=== PATIENT | male | born 1975 | race Caucasian/White ===

== ENCOUNTER 2019-11-06 09:43 | Emergency (ER) | payer OTHER, SELFPAY ==
[2019-11-06 09:58] VITALS: BP 142/81; PULSE 88; RESP 18; TEMP 37.4; O2SAT 99
--- NOTE | 2019-11-06 10:20 | ED.LOWEXIN ---
HPI - Extremity Injury (Lower) General Chief Complaint: Extremity Problem,Nontraumatic Stated Complaint: Heel Pain Time Seen by Provider: 11/06/19 10:08 Source: patient and RN notes reviewed Mode of arrival: ambulatory Limitations: no limitations History of Present Illness HPI Narrative: Patient presents today complaining of a 2-day history of right heel pain. Patient denies any injury or trauma. Reports history of heel spurs in this heel 10 years ago, but that had not really been bothering him since. He currently rates his pain 5/10, which increases with weightbearing. He has tried no [id number] medicines for pain prior to arrival. MD complaint: foot injury Related Data Home Medications Medication Instructions Recorded Confirmed lisinopril 5 mg PO DAILY 11/06/19 11/06/19 omeprazole 20 mg PO DAILY 11/06/19 11/06/19 Allergies Allergy/AdvReac Type Severity Reaction Status Date / Time No Known Allergies Allergy Verified 08/16/16 23:02 Review of Systems Review of Systems: Narrative: CONSTITUTIONAL: Denies body aches, fever, chills, or sweats. EYES: Denies visual changes, redness, or discharge. ENT: Denies rhinorrhea, congestion, sore throat, or otalgia. CARDIOVASCULAR: Denies chest pain, palpitations, or edema. RESPIRATORY: Denies cough or dyspnea. GASTROINTESTINAL: Denies abdominal pain, nausea, vomiting, or diarrhea. GENITOURINARY: Denies dysuria or hematuria. SKIN: Denies rash, itching, or wounds. MUSCULOSKELETAL: Denies back pain, joint pain, or myalgia.+ Right heel pain NEUROLOGIC: Denies headache, numbness, tingling, or weakness. PSYCH: Denies depression or anxiety. [facility] Past Medical History Medical History (Updated 11/06/19 @ 10:23 by La Nena Bui, [facility], ) GERD (gastroesophageal reflux disease) Hypertension Family History Family History (Updated 04/30/16 @ 23:21 by DOCTOR UNKNOWN) Father Hypertension Family history of elevated blood lipids Family history of diabetes mellitus in first degree relative Family history of heart disease in male family member before age 55 Mother Hypertension Patient's mother is in good health Sibling Hypertension Family history of gastrointestinal disorder Other Diabetes mellitus Family history of arthritis Family history of gout Social History Social History Smoking status: Never smoker Alcohol intake: current Comments At time of signature, I have reviewed and agree with nursing past medical, surgical, social and family history unless otherwise noted. Please see nursing chart for further information. There is no relevant family history pertinent to the presenting complaint Exam Narrative: Exam Narrative: GENERAL: Well-appearing, severely over-nourished, and in no acute distress. HEAD: Normocephalic, atraumatic. EYES: EOMI. No redness or drainage. Conjunctivae normal. ENT: Mucous membranes pink and moist. NECK: Normal AROM. CHEST: No respiratory distress. EXTREMITIES: Tenderness to the right plantar fascia. No swelling, ecchymosis, erythema of the foot. Distal sensation intact. Capillary refill normal. Pedal pulse normal. Full AROM of ankle and all toes. No morning bony tenderness to the calcaneus SKIN: Warm, dry, no rash. NEURO: No focal deficits. Alert and oriented x3. Gait steady. PSYCH: Normal affect. No signs of depression or anxiety. Course Vital Signs Vital signs: Vital Signs Temperature 99.3 F 11/06/19 09:58 Pulse Rate 88 11/06/19 09:58 Respiratory Rate 18 11/06/19 09:58 Blood Pressure 142/81 H 11/06/19 09:58 Pulse Oximetry 99 11/06/19 09:58 Temperature 99.3 F 11/06/19 09:58 Pulse Rate 88 11/06/19 09:58 Respiratory Rate 18 11/06/19 09:58 Blood Pressure 142/81 H 11/06/19 09:58 Pulse Oximetry 99 11/06/19 09:58 Reviewed. Pt has been instructed to follow up with his PCP regarding his elevated blood pressure today. MDM - Extremity Injury (Lower) Differential
== END 2019-11-06 10:25 | disposition home or self-care (01) ==
PROVIDERS: Emergency Provider Nurse Practitioner
DX: M72.2 Plantar fascial fibromatosis (principal); K21.9 Gastro-esophageal reflux disease without esophagitis; I10 Essential (primary) hypertension
CPT/HCPCS: 99213; G0463

== ENCOUNTER 2021-09-10 15:27 | Emergency (ER) | payer OTHER, SELFPAY ==
[2021-09-10 15:40] VITALS: BP 155/83; PULSE 103; RESP 16; TEMP 36.9; O2SAT 96
--- NOTE | 2021-09-10 16:00 | ED.BACK ---
HPI - Back Pain/Injury General Chief Complaint: Back Pain/Injury Stated Complaint: back pain Source: patient and RN notes reviewed Mode of arrival: ambulatory History of Present Illness HPI Narrative: This is a 45-year-old male who presented to urgent care with complaints of lower back pain. According to patient approximately 1 week ago he bent over and felt an unusual pain to his lower back. Patient notes that he has been taking ibuprofen at home with some relief, patient notes that his pain increases when he stands and bear weight. The patient denies SOB, CP, palpitation, extremity numbness, lightheadedness, dizziness, constipation, diarrhea, no neurovascular deficiency noted, chills, or fever. Related Data Home Medications Medication Instructions Recorded Confirmed lisinopril 5 mg PO DAILY 11/06/19 09/10/21 omeprazole 20 mg PO DAILY 11/06/19 09/10/21 Allergies Allergy/AdvReac Type Severity Reaction Status Date / Time No Known Allergies Allergy Verified 09/10/21 15:55 Review of Systems Review of Systems: A 14 organ system Review of Systems was performed and pertinent positives included in the HPI, otherwise remaining ROS is negative. [facility] Past Medical History Medical History (Updated 09/10/21 @ 15:59 by CATHLEEN Bowden) GERD (gastroesophageal reflux disease) Hypertension ANNELISE (obstructive sleep apnea) Osteoarthritis of knees, bilateral Surgical History Surgical History (Updated 09/10/20 @ 09:49 by Meenu Mcpherson) History of cholecystectomy Family History Family History Father Hypertension Family history of elevated blood lipids Family history of diabetes mellitus in first degree relative Family history of heart disease in male family member before age 55 Mother Hypertension Patient's mother is in good health Sibling Hypertension Family history of gastrointestinal disorder Other Diabetes mellitus Family history of arthritis Family history of gout Social History Social History Smoking status: Never smoker Alcohol intake: current Exam Narrative: GENERAL: This is a well-nourished, well-developed patient, in no apparent distress. HEAD: normocephalic, atraumatic. EYES: PERRL. Sclera clear/white. Vision is grossly intact. EARS: External ears normal, auditory canals clear and without drainage, TMs normal without perforation. Hearing grossly intact. NOSE: External nose normal with no obvious nasal discharge, nares without redness, no rhinorrhea. THROAT: Mucous membranes moist, posterior pharynx clear. NECK: Neck supple, non-tender without lymphadenopathy, masses or thyromegaly. CARDIOVASCULAR: Regular rate and rhythm without murmurs, gallops, or rubs. RESPIRATORY: Clear to auscultation. Breath sounds equal bilaterally. No wheezes, rales, or rhonchi. GASTROINTESTINAL: Abdomen soft, non-tender, nondistended. Bowel sounds are active. No hepato-splenomegaly, or palpable masses. No guarding. SKIN: warm, intact with no suspicious lesions or rash, good texture and turgor. NEURO: awake, alert, and oriented to person, place and time. There were no obvious focal neurologic abnormalities. Steady gait EXTREMITIES: Normal range of motion. No edema. No calf tenderness. Negative Homans sign bilaterally. BACK: Tenderness to lower back with palpation Course Course Emergency Course: Patient was discharged with Flexeril Vital Signs Vital signs: Vital Signs Temperature 98.5 F 09/10/21 15:40 Pulse Rate 103 H 09/10/21 15:40 Respiratory Rate 16 09/10/21 15:40 Blood Pressure 155/83 H 09/10/21 15:40 Pulse Oximetry 96 09/10/21 15:40 Temperature 98.5 F 09/10/21 15:40 Pulse Rate 103 H 09/10/21 15:40 Respiratory Rate 16 09/10/21 15:40 Blood Pressure 155/83 H 09/10/21 15:40 Pulse Oximetry 96 09/10/21 15:40 MDM - Back Pain/Injury Differential Matilde
== END 2021-09-10 16:05 | disposition home or self-care (01) ==
PROVIDERS: Emergency Provider Nurse Practitioner; PCP Nurse Practitioner Family
DX: M54.50 Low back pain, unspecified (principal); K21.9 Gastro-esophageal reflux disease without esophagitis; I10 Essential (primary) hypertension; G47.33 Obstructive sleep apnea (adult) (pediatric); M17.0 Bilateral primary osteoarthritis of knee
CPT/HCPCS: 99213; G0463

== ENCOUNTER 2025-06-02 18:05 | Emergency (ER) | payer OTHER, SELFPAY ==
--- NOTE | ~2025-06-02 | XR_ITS ---
EXAMINATION: XR chest 2V DATE: 06/02/2025 18:57 INDICATION: Midsternal chest pain TECHNIQUE: PA and lateral views of the chest were obtained. COMPARISON: Chest radiograph dated 06/03/2016 FINDINGS: The lungs remain clear with no focal airspace opacities, pulmonary edema, pleural effusion or pneumothorax. The cardiomediastinal silhouette is normal. Mild thoracic spondylosis. IMPRESSION: 1. No acute cardiopulmonary disease. Reviewed, dictated and finalized at location A.
--- NOTE | 2025-06-02 18:06 | ECG_ITS ---
Test Date: 2025-06-02 18:10:52 Measurements Intervals [place] Rate: 88 P: 9 CT: 167 QRS: -31 QRSD: 81 T: 12 QT: 326 QTc: 396 Interpretive Statements SINUS RHYTHM LOW QRS VOLTAGE IN PRECORDIAL LEADS CONSIDER INFERIOR INFARCT, AGE INDETERMINATE CONSIDER ANTERIOR INFARCT, AGE INDETERMINATE BASELINE ARTIFACT- I, II, III, AVR, AVL, AVF, V1-V5 ABNORMAL ECG No previous ECG available for comparison Electronically Signed On 06-02-2025 21:18:01 CDT by Paul Sheriff D.O.
[2025-06-02 18:19] VITALS: BP 184/96; PULSE 88; RESP 20; TEMP 36.6; O2SAT 96
[2025-06-02 18:45] LABS: INR 1.1; Prothrombin Time 14.3 Seconds (11.1-14.7)
[2025-06-02 18:46] LABS: Partial Thromboplastin Time 27.9 Seconds (22.3-36.8)
[2025-06-02 18:48] LABS: Alanine Aminotransferase 35 U/L (6-50); Albumin Level 4.2 g/dL (3.5-5.1); Alkaline Phosphatase 85 U/L (38-126); Anion Gap 9 mmol/L (4-12); Aspartate Amino Transferase 31 U/L (17-59); Bilirubin,Total 0.9 mg/dL (0.2-1.3); Blood Urea Nitrogen 8 mg/dL (9-20); Calcium 9.2 mg/dL (8.4-10.2); Carbon Dioxide 27 mmol/L (22-30); Chloride 103 mmol/L (98-107); Estimated CRCL calculation 165 ml/min; Estimated Glomerular Filt Rate > 60; Glucose 101 mg/dL (65-110); Lipase 66 U/L (23-300); Potassium 3.9 mmol/L (3.4-5.0); Sodium 139 mmol/L (137-145); Total Protein 8.0 g/dL (6.3-8.2)
[2025-06-02 18:57] LABS: Troponin I < 0.012 ng/mL (0.000-0.034)
[2025-06-02 19:57] LABS: Hematocrit 44.0 % (42.0-52.0); Hemoglobin 13.8 g/dL (14.0-18.0); Immature Granulocyte Percent A 0.3 % (0-0.5); Lymphocytes Absolute Auto 2.54 K/mm3 (0.9-3.2); Mean Corpuscular HGB Conc 31.4 g/dl (32-36); Mean Corpuscular Hemoglobin 28.3 pg (26-34); Mean Corpuscular Volume 90.3 fl (80-100); Nucleated Red Blood Cells Absolute Auto 0.000 K/mm3 (0.0-0.012); Nucleated Red Blood Cells Perc 0.0 % (0.0-0.2); Platelet Count Result 388 k/mm3 (150-375); Red Blood Count 4.87 M/mm3 (4.6-6.20); White Blood Count 10.0 K/mm3 (4.5-10.0)
[2025-06-02 21:29] VITALS: BP 148/100; PULSE 78; RESP 18; TEMP 36.6; O2SAT 95
--- NOTE | 2025-06-02 21:38 | ECG_ITS ---
Test Date: 2025-06-02 22:28:32 Measurements Intervals [place] Rate: 78 P: 12 MD: 176 QRS: -18 QRSD: 74 T: 6 QT: 355 QTc: 404 Interpretive Statements SINUS RHYTHM LOW QRS VOLTAGE IN PRECORDIAL LEADS [QRS DEFLECTION < 1.0 mV IN CHEST LEADS] ANTERIOR MYOCARDIAL INFARCTION , PROBABLY OLD [40+ ms Q WAVE AND/OR ST/T ABNORMALITY IN V3/V4] INFERIOR MYOCARDIAL INFARCTION , PROBABLY OLD [40+ ms Q WAVE AND/OR ST/T ABNORMALITY IN II/aVF] Compared to ECG 06/02/2025 18:10:52 No significant changes Electronically Signed On 06-03-2025 11:42:53 CDT by Rajan Magaña M.D.
[2025-06-02 22:05] VITALS: BP 141/88; PULSE 85; RESP 17; O2SAT 97
[2025-06-02 22:08] VITALS: PULSE 86
[2025-06-02 22:43] VITALS: O2SAT 98
[2025-06-02 22:56] LABS: Troponin I < 0.012 ng/mL (0.000-0.034)
--- NOTE | 2025-06-02 23:52 | ED.GENADULT ---
HPI - General Adult General Chief complaint: Chest Pain Stated complaint: CP Time Seen by Provider: 06/02/25 23:19 History of Present Illness HPI narrative: Patient is a 50-year-old gentleman presents emergency department with chief complaint of chest pain. Patient reports that he has been having discomfort for the last few days reports a 5/10 reports that sharp reports that he felt a little short of breath with that patient reports that he has no prior history of cardiac disease does have history of hypertension and reports that he had a cardiac catheterization about 5 years ago Related Data Home Medications ?Medication ?Instructions ?Recorded ?Confirmed ?Last Taken ?Type lisinopril 5 mg tablet 5 mg PO DAILY 11/06/19 09/10/21 Unknown History omeprazole 20 mg tablet,delayed 20 mg PO DAILY 11/06/19 09/10/21 Unknown History release Allergies Allergy/AdvReac Type Severity Reaction Status Date / Time No Known Allergies Allergy Verified 06/02/25 18:19 Review of Systems Review of Systems: A 10 system review of systems was completed on the patient and is negative except for what is stated in the HPI. Nursing and ancillary documentation was reviewed. [facility] Past Medical History Medical History ANNELISE (obstructive sleep apnea) Osteoarthritis of knees, bilateral Hypertension GERD (gastroesophageal reflux disease) Surgical History Surgical History History of cholecystectomy Family History Family History Father Hypertension Family history of elevated blood lipids Family history of diabetes mellitus in first degree relative Family history of heart disease in male family member before age 55 Mother Hypertension Patient's mother is in good health Sibling Hypertension Family history of gastrointestinal disorder Other Diabetes mellitus Family history of arthritis Family history of gout Social History Social History Smoking status: Never smoker Alcohol intake: current Exam Narrative: GENERAL: Well-appearing, obese, and in no acute distress. HEAD: Normocephalic, atraumatic. EYES: PERRLA and EOMI. ENT: Nares clear, no rhinorrhea or epistaxis. Mucous membranes moist. NECK: Supple. CHEST: Clear to auscultation. No respiratory distress. HEART: Regular rate and rhythm. No murmur heard. Normal peripheral pulses. ABDOMEN: Soft, nontender, nondistended, normal active bowel sounds. EXTREMITIES: Normal range of motion. No edema. SKIN: Warm, dry, no rash. NEURO: No focal deficits. Alert and oriented x3. PSYCH: Normal mood and affect. Course Vital Signs Vital signs: Vital Signs Temperature 36.6 C 06/02/25 18:19 Pulse Rate 88 06/02/25 18:19 Respiratory Rate 20 06/02/25 18:19 Blood Pressure 184/96 H 06/02/25 18:19 Pulse Oximetry 96 06/02/25 18:19 Oxygen Delivery Room Air 06/02/25 18:19 Temperature 36.6 C 06/02/25 21:29 Pulse Rate 86 06/02/25 22:08 Respiratory Rate 17 06/02/25 22:05 Blood Pressure 141/88 H 06/02/25 22:05 Pulse Oximetry 98 06/02/25 22:43 Oxygen Delivery Room Air 06/02/25 22:43 Medical Decision Making [facility] Narrative Medical decision making narrative: Differential diagnosis includes pancreatitis cholecystitis, biliary obstruction, pneumonia, pneumothorax, ACS, atypical chest pain Chest x-ray showed no acute abnormality EKG showed no acute ischemic changes Initial troponin was negative 3 hour repeat troponin was also negative Liver enzymes were normal lipase was normal CBC was within normal limits hemoglobin was 13.8 Vital Signs Vital Signs: Vital Signs Temperature 36.6 C 06/02/25 18:19 Pulse Rate 88 06/02/25 18:19 Respiratory Rate 20 06/02/25 18:19 Blood Pressure 184/96 H 06/02/25 18:19 Pulse Oximetry 96 06/02/25 18:19 Oxygen Delivery Room Air 06/02/25 18:19 Temperature 36.6 C 06/02/25 21:29 Pulse Rate 86 06/02/25 22:08 Respiratory Rate 17 06/02/25 22:05 Blood Pressure 141/88 H 06/02/25 22:05 Pulse Oximetry 98 06/02/25 22:43 Oxygen Delivery Room Air 06/02/25 22:43 Lab Data 06/02/25 18:27 06/02/25 18:27 Labs: Lab Results 06/02/25 06/02/25 Range/Units 18:27 22:28 WBC 10.0 (4.5-10.0) K/mm3 RBC 4.87 (4.6-6.20) M/mm3 Hgb 13.8 L (14.0-18.0) g/dL Hct 44.0 (42.0-52.0) % MCV 90.3 (80-100) fl MCH 28.3 (26-34) pg MCHC 31.4 L (32-36) g/dl RDW 13.6 (11.5-14.5) % Plt Count 388 H (150-375) k/mm3 MPV 10.1 (7.4-10.4) fl Immature Gran % (Auto) 0.3 (0-0.5) % Neut % (Auto) 62.4 (45.5-73.1) % Lymph % (Auto) 25.3 (18.3-44.2) % [place] % (Auto) 10.8 H (2.6-8.5) % Eos % (Auto) 0.9 (0-4.4) % Baso % (Auto) 0.3 (0.2-1.2) % Lymph # (Auto) 2.54 (0.9-3.2) K/mm3 [place] # (Auto) 1.1 H (0.1-0.6) K/mm3 Eos # (Auto) 0.1 (0-0.3) K/mm3 Baso # (Auto) 0.0 (0.0-0.1) K/mm3 Abs Immat Gran (auto) 0.03 (0.00-0.031) K/mm3 Absolute Neuts (auto) 6.3 (1.3-6.7) K/mm3 Absolute Nucleated RBC 0.000 (0.0-0.012) K/mm3 Nucleated RBC % 0.0 (0.0-0.2) % PT 14.3 (11.1-14.7) Seconds INR 1.1 APTT 27.9 (22.3-36.8) Seconds Sodium 139 (137-145) mmol/L Potassium 3.9 (3.4-5.0) mmol/L Chloride 103 (98-107) mmol/L Carbon Dioxide 27 (22-30) mmol/L Anion Gap 9 (4-12) mmol/L BUN 8 L (9-20) mg/dL Creatinine 0.83 (0.7-1.3) mg/dL Estim Creat Clear Calc 165 ml/min Estimated GFR > 60 (59 - ) Glucose 101 (65-110) mg/dL Calcium 9.2 (8.4-10.2) mg/dL Total Bilirubin 0.9 (0.2-1.3) mg/dL AST 31 (17-59) U/L ALT 35 (6-50) U/L Alkaline Phosphatase 85 (38-126) U/L Troponin I < 0.012 < 0.012 (0.000-0.034) ng/mL Total Protein 8.0 (6.3-8.2) g/dL Albumin 4.2 (3.5-5.1) g/dL Lipase 66 (23-300) U/L Discharge Plan Discharge Clinical Impression: Chest pain Patient Disposition: Home Condition: Stable Instructions: Antibiotic Form, Chest Pain (ED) Additional Instructions: Please follow-up your primary care provider if her symptoms worsen please return to the emergency department. Patient Language: Japanese Prescriptions: No Action lisinopril 5 mg tablet 5 mg PO DAILY omeprazole 20 mg Tablet,Delayed Release (Dr/Ec) 20 mg PO DAILY cyclobenzaprine 5 mg tablet 5 mg PO TID PRN (Reason: muscle spasm) Qty: 20 0RF Follow-up/Referrals: JEFF,MAICO BOLTON [Primary Care Provider] Time of Disposition: 23:55 Quality HEART score for chest pain patients History: slightly suspicious ECG: non specific repolarization disturbance/LBTB/PM Age: > 45 and < 65 years Risk factors: 1 or 2 risk factors Troponin: < or = to 1x normal limit Heart score: 3
[2025-06-03 00:19] VITALS: BP 136/84; PULSE 79; RESP 19; O2SAT 98
[2025-06-03 00:20] VITALS: BP 136/84; PULSE 79; RESP 19; O2SAT 98
== END 2025-06-03 00:23 | disposition home or self-care (01) ==
PROVIDERS: Emergency Medicine; Emergency Provider Emergency Medicine; PCP Nurse Practitioner Family
DX: R07.9 Chest pain, unspecified (principal); G47.30 Sleep apnea, unspecified; I10 Essential (primary) hypertension; K21.9 Gastro-esophageal reflux disease without esophagitis; M17.0 Bilateral primary osteoarthritis of knee
CPT/HCPCS: 36415; 71046; 80053; 83690; 84484; 85025; 85610; 85730; 93005; 99284